=== PATIENT | female | born 1995 | race Caucasian/White ===

== ENCOUNTER 2016-07-05 13:51 | Emergency (ER) | payer OTHER ==
--- NOTE | 2016-07-05 16:06 | RAD ---
Indication: Fall, confusion. CT of the brain was performed without IV contrast. Ventricular structures are midline. No midline shift is noted. The extra-axial spaces are unremarkable. There is no evidence of intracranial mass or hemorrhage. No other high or low density lesions are identified. IMPRESSION: No intracranial mass or hemorrhage is noted.
--- NOTE | 2016-07-05 16:16 | ED ---
Head Injury - HPI Summary HPI Summary: 21F presents with head injury yesterday. She states that she had been drinking a little and she slipped and fell in the shower. She states afterwards she was dizzy so she went and feel down the stairs. She states that yesterday she vomited twice and was nauseous. She denies any other pain. She states that today she is no longer nauseous and has not vomited today. She states she does have a mild headache but denies any visual changes. She denies any LOC. - History Of Current Complaint Chief Complaint: EDHeadInjury Stated Complaint: FALL / HIT HEAD Time Seen by Provider: 07/05/16 15:45 Pain Intensity: 2 - Allergies/Home Medications Allergies/Adverse Reactions: Allergies Allergy/AdvReac Type Severity Reaction Status Date / Time No Known Allergies Allergy Verified 12/14/15 09:15 PMH/Surg Hx/FS Hx/Imm Hx Endocrine/Hematology History: Denies: Hx Anticoagulant Therapy Cardiovascular History: Denies: Hx Hypertension Infectious Disease History: No Infectious Disease History: Denies: Traveled Outside the [place] in Last 30 Days - Family History Known Family History: Positive: Hypertension - Social History Alcohol Use: None Substance Use Type: Reports: None Smoking Status (MU): Never Smoked Tobacco Review of Systems Negative: Fever Negative: Chest Pain Negative: Shortness Of Breath Positive: Vomiting - resolved, Nausea - resolved Positive: Headache All Other Systems Reviewed And Are Negative: Yes Physical Exam Triage Information Reviewed: Yes Vital Signs On Initial Exam: Initial Vitals Temp Pulse Resp BP Pulse Ox 98.6 F 80 18 146/66 100 07/05/16 13:59 07/05/16 13:59 07/05/16 13:59 07/05/16 13:59 07/05/16 13:59 Vital Signs Reviewed: Yes Appearance: Positive: Well-Appearing Skin: Positive: Warm, Dry Head/Face: Positive: Normal Head/Face Inspection, Other - no step off, razo sign, raccoon eyes Eyes: Positive: Normal, EOMI, CARINA, Conjunctiva Clear ENT: Positive: Normal ENT inspection, Pharynx normal, TMs normal Neck: Positive: Nontender Respiratory/Lung Sounds: Positive: Clear to Auscultation, Breath Sounds Present Cardiovascular: Positive: Normal, RRR Neurological: Positive: Sensory/Motor Intact, Alert, Oriented to Person Place, Time, CN Intact II-III - [place] Coma Scale Best Eye Response: 4 - Spontaneous Best Motor Response: 6 - Obeys Commands Best Verbal Response: 5 - Oriented Diagnostics - Vital Signs Vital Signs Temp Pulse Resp BP Pulse Ox 07/05/16 13:59 98.6 F 80 18 146/66 100 - Laboratory Lab Statement: Any lab studies that have been ordered have been reviewed, and results considered in the medical decision making process. - CT head CT Interpretation: No Acute Changes - IMPRESSION: No intracranial mass or hemorrhage is noted. CT Interpretation Completed By: Radiologist Head Injury Course/Dx Course Of Treatment: 21F presents with head injury s/p drinking she fell in shower and down some stairs. did vomit twice. denies LOC. was seen at urgent care and transferred here for CT. denies any other injury. normal neuro exam. got CT normal. discussed that normal to have headache after head injury and can be more tired than normal. told to follow up with juan ramon and what signs to return to ED for. patient understands and agrees with plan - Diagnoses Differential Diagnosis/HQI/PQRI: Cerebral Contusion, Concussion Without LOC, Intracranial Bleed Provider Diagnoses: Head injury Discharge - Discharge Plan Condition: Good Disposition: HOME Patient Education Materials: Head Injury (ED) Referrals: [facility] JUAN RAMON Gagnon [Primary Care Provider] - Additional Instructions: Take Tylenol for headache every 6 hours Is normal to feel sleeper than usual and to have a change in appetite Follow up with Juan Ramon within 5 days if no improvement Return to ED if develop vomiting, severe headache, change in behavior, or any new or worsening symptoms
[2016-07-05 16:53] VITALS: BP 110/47
== END 2016-07-05 16:51 | disposition home or self-care (01) ==
LOC: ED 13:51
DX: S09.90XA Unspecified injury of head, initial encounter (principal); W19.XXXA Unspecified fall, initial encounter; Y93.9 Activity, unspecified; Y92.9 Unspecified place or not applicable; R11.2 Nausea with vomiting, unspecified; R51 Headache
CPT/HCPCS: 70450; 99281